=== PATIENT | male | born 1990 | race Caucasian/White ===

== ENCOUNTER 2017-08-15 18:41 | Emergency (ER) | payer MEDICAID ==
[~2017-08-15] VITALS: Ht 188 cm; Wt 134.7 kg
[2017-08-15 18:54] VITALS: BP 140/89
== END 2017-08-15 20:57 | disposition home or self-care (01) ==
LOC: ER 18:44
DX: R05 Cough (principal); Z86.19 Personal history of other infectious and parasitic diseases
CPT/HCPCS: 71046; A4606; Z7610

== ENCOUNTER 2018-03-07 20:12 | Emergency (ER) | payer MEDICAID ==
[~2018-03-07] VITALS: Ht 188 cm; Wt 124.3 kg
[2018-03-07 21:25] LABS: BASOPHILS # (AUTO) 0.1 /CMM (0.0-0.2); EOSINOPHILS % (AUTO) 2.5 % (0.0-6.0); HEMATOCRIT 45 % (39-51); HEMOGLOBIN 15.3 g/dL (13.5-17.5); LYMPHOCYTES # (AUTO) 2.1 /CMM (0.8-4.8); LYMPHOCYTES % (AUTO) 25.6 % (20.0-44.0); MEAN CORPUSCULAR HGB CONC 34 g/dl (31.0-36.0); MEAN CORPUSCULAR VOLUME 94 fL (80-96); MONOCYTES # (AUTO) 0.7 /CMM (0.1-1.30); NEUTROPHILS # (AUTO) 5.1 /CMM (1.8-8.9); NEUTROPHILS % (AUTO) 62.9 % (43.0-81.0); PLATELET COUNT (AUTO) 214 /CMM (150-450); RDW COEFFICIENT OF VARIATION 12.3 (11.5-15.0); RED BLOOD CELL COUNT(AUTO) 4.78 MIL/uL (4.5-6.0); WHITE BLOOD COUNT (AUTO) 8.2 K/uL (4.3-11.0)
[2018-03-07] MEDS ORDERED: ACETAMINOPHEN ES 500 MG TABLET PO ONE (21:30)
[2018-03-07] MEDS ORDERED: LIDOCAINE VISCOUS 2% UD 15 ML UDC MM ONE (21:30)
[2018-03-07] MEDS ORDERED: MAG HYDROX/AL HYDROX/SIMETH 30 ML UDC PO ONE (21:30)
[2018-03-07 21:36] LABS: INR 0.9 (0.85-1.15)
[2018-03-07 21:39] LABS: ALANINE AMINOTRANSFERASE 165 U/L (12-78); ALBUMIN 3.7 g/dL (3.4-5.0); ALKALINE PHOSPHATASE 103 U/L (46-116); ASPARTATE AMINOTRANSFERASE 70 U/L (15-37); BILIRUBIN,DIRECT 0.1 mg/dL (0.0-0.2); BILIRUBIN,TOTAL 0.5 mg/dL (0.2-1.0); CALCIUM, SERUM 8.6 mg/dL (8.5-10.1); CARBON DIOXIDE 32 mmol/L (21-32); CHLORIDE 105 mmol/L (98-107); GLUCOSE 91 mg/dL (74-106); POTASSIUM 3.4 mmol/L (3.5-5.1); SODIUM SERUM 141 mmol/L (136-145); TOTAL PROTEIN, SERUM 7.4 g/dL (6.4-8.2); UREA NITROGEN, BLOOD 12 mg/dL (7-18)
[2018-03-07 21:41] LABS: TROPONIN I < 0.017 ng/mL (0.00-0.056)
[2018-03-07] MEDS ORDERED: MAG HYDROX/AL HYDROX/SIMETH 30 ML UDC ONE (21:43)
[2018-03-07] MEDS ORDERED: ACETAMINOPHEN ES 500 MG TABLET ONE (21:43)
[2018-03-07] MEDS ORDERED: LIDOCAINE VISCOUS 2% UD 15 ML UDC ONE (21:43)
--- NOTE | 2018-03-07 21:43 | NUR ---
PT BIB SELF WITH MOTHER AT BEDSIDE, COMPLAINING OF CHEST PAIN 12/19 DOES NOT RADIATE SINCE 1000 03/07 THIS AM. VITAL SIGNS STABLE, RR EVEN AND UNLABORED WILL CONTINUE TO MONITOR
[2018-03-07 22:04] LABS: D-DIMER 0.32 mg/L(FEU (0.17-0.50)
[2018-03-07 22:25] VITALS: BP 142/79
== END 2018-03-07 22:25 | disposition home or self-care (01) ==
LOC: ER 20:13
DX: R07.89 Other chest pain (principal); R74.0 Nonspecific elevation of levels of transaminase and lactic acid dehydrogenase [LDH]; F12.90 Cannabis use, unspecified, uncomplicated; Z86.19 Personal history of other infectious and parasitic diseases
CPT/HCPCS: 36415; 71045-TC; 80048-TC; 80076-TC; 84484-TC; 85025-TC; 85378-TC; 85730-TC; A4606; Z7610

== ENCOUNTER 2018-04-24 05:05 | Emergency (ER) | payer MEDICAID ==
[~2018-04-24] VITALS: Ht 188 cm; Wt 106.6 kg
[2018-04-24] MEDS ORDERED: MORPHINE SULFATE INJ 4 MG/ML DISP.SYRIN ONE (05:38)
[2018-04-24] MEDS ORDERED: ONDANSETRON HCL/PF 4 MG/2 ML VIAL ONE (05:38)
[2018-04-24] MEDS ORDERED: PANTOPRAZOLE 40 MG VIAL ONE (05:38)
[2018-04-24 05:55] LABS: BASOPHILS % (AUTO) 0.4 % (0.0-2.0); HEMATOCRIT 47 % (39-51); HEMOGLOBIN 16.3 g/dL (13.5-17.5); LYMPHOCYTES # (AUTO) 1.2 /CMM (0.8-4.8); LYMPHOCYTES % (AUTO) 17.9 % (20.0-44.0); MEAN CORPUSCULAR HGB CONC 35 g/dl (31.0-36.0); MEAN CORPUSCULAR VOLUME 95 fL (80-96); MONOCYTES # (AUTO) 0.6 /CMM (0.1-1.30); MONOCYTES % (AUTO) 9.2 % (2.0-12.0); NEUTROPHILS # (AUTO) 4.6 /CMM (1.8-8.9); NEUTROPHILS % (AUTO) 70.5 % (43.0-81.0); PLATELET COUNT (AUTO) 180 /CMM (150-450); RED BLOOD CELL COUNT(AUTO) 4.98 MIL/uL (4.5-6.0); WHITE BLOOD COUNT (AUTO) 6.5 K/uL (4.3-11.0)
[2018-04-24] MEDS ORDERED: ONDANSETRON HCL/PF 4 MG/2 ML VIAL IVP ONE (06:00)
[2018-04-24] MEDS ORDERED: IV NS 0.9% 1,000 ML BAG IV ONE (06:00)
[2018-04-24] MEDS ORDERED: PANTOPRAZOLE 40 MG VIAL IV ONE (06:00)
[2018-04-24] MEDS ORDERED: MORPHINE SULFATE INJ 2 MG/ML DISP.SYRIN IV ONE (06:00)
[2018-04-24 06:04] LABS: CALCIUM, SERUM 8.5 mg/dL (8.5-10.1); POTASSIUM 3.1 mmol/L (3.5-5.1)
[2018-04-24 06:10] LABS: ALBUMIN 3.7 g/dL (3.4-5.0); BILIRUBIN,DIRECT 0.1 mg/dL (0.0-0.2); BILIRUBIN,TOTAL 0.5 mg/dL (0.2-1.0); TOTAL PROTEIN, SERUM 7.8 g/dL (6.4-8.2)
[2018-04-24] MEDS ORDERED: POTASSIUM CHLORIDE 20 MEQ TAB.PRT.SR PO ONE ×2 (06:30→06:38)
--- NOTE | 2018-04-24 07:29 | NUR ---
RECEIVED REPORT FROM OUTGOING NURSE PATIENT IN BED, STABLE AT THIS TIME. WILL CONTINUE TO MONITOR ACCORDINGLY.
--- NOTE | 2018-04-24 07:44 | NUR ---
REPORT GIVEN TO ANGELICA DENT FOR NAT.
[2018-04-24 08:04] LABS: BASOPHILS % (AUTO) 0.3 % (0.0-2.0); EOSINOPHILS % (AUTO) 1.4 % (0.0-6.0); HEMATOCRIT 47 % (39-51); LYMPHOCYTES # (AUTO) 1.5 /CMM (0.8-4.8); LYMPHOCYTES % (AUTO) 20.2 % (20.0-44.0); MEAN CORPUSCULAR HGB CONC 34 g/dl (31.0-36.0); MEAN CORPUSCULAR VOLUME 94 fL (80-96); MONOCYTES # (AUTO) 0.6 /CMM (0.1-1.30); MONOCYTES % (AUTO) 8.2 % (2.0-12.0); NEUTROPHILS # (AUTO) 5.1 /CMM (1.8-8.9); NEUTROPHILS % (AUTO) 69.9 % (43.0-81.0); PLATELET COUNT (AUTO) 184 /CMM (150-450); RED BLOOD CELL COUNT(AUTO) 4.93 MIL/uL (4.5-6.0); WHITE BLOOD COUNT (AUTO) 7.3 K/uL (4.3-11.0)
[2018-04-24 08:57] VITALS: BP 135/70
== END 2018-04-24 08:58 | disposition home or self-care (01) ==
LOC: ER 05:05
DX: K29.70 Gastritis, unspecified, without bleeding (principal); F17.200 Nicotine dependence, unspecified, uncomplicated; Z86.19 Personal history of other infectious and parasitic diseases
CPT/HCPCS: 36415; 80048-TC; 80076-TC; 83690-TC; 85025-TC; 85730-TC; A4606; C9113; J2270; J2405; J7030; Z7610

== ENCOUNTER 2018-07-23 14:20 | Emergency (ER) | payer MEDICAID ==
[~2018-07-23] VITALS: Ht 188 cm; Wt 136.1 kg
[2018-07-23 14:25] VITALS: BP 150/80
[2018-07-23] MEDS ORDERED: GUAIFENESIN/D-METHORPHAN HB 5 ML UDC ONE (14:42)
[2018-07-23] MEDS ORDERED: IBUPROFEN 600 MG TABLET PO ONE ×2 (14:42→15:00)
[2018-07-23] MEDS ORDERED: GUAIFENESIN/D-METHORPHAN HB 5 ML UDC PO ONE (15:00)
== END 2018-07-23 14:49 | disposition home or self-care (01) ==
LOC: ER 14:23
DX: J40 Bronchitis, not specified as acute or chronic (principal); F17.200 Nicotine dependence, unspecified, uncomplicated; Z86.19 Personal history of other infectious and parasitic diseases

== ENCOUNTER 2019-03-08 21:37 | Emergency (ER) | payer MEDICAID ==
[~2019-03-08] VITALS: Ht 188 cm; Wt 109.3 kg
--- NOTE | 2019-03-08 22:05 | NUR ---
BIBSELF AMBULATORY TO ER [facility] 12. C/O EYE PAIN S/P FLICKED CIGARETTE IN L EYE. UNABLE TO OPEN BOTH EYES" AOX4. VSS. RR EVEN UNLABORED. NO SOB NOTED. NO NVD AT THIS TIME. PT WAITING FOR MD SAHU. UNABLE TO DO VISUAL ACUITY AT THIS TIME.
[2019-03-08] MEDS ORDERED: ONDANSETRON HCL 4 MG/5 ML SOLUTION PO ONE (22:30)
[2019-03-08] MEDS ORDERED: TETRACAINE HCL 0.5% OPHTALMIC 15 ML BOTTLE OP ONE (22:30)
[2019-03-08] MEDS ORDERED: FLUORESCEIN SODIUM OPHTH 1 EA STRIP OP ONE (22:30)
[2019-03-08] MEDS ORDERED: HYDROCODONE/APAP 5/325MG 1 EACH TABLET PO ONE (22:30)
[2019-03-08] MEDS ORDERED: ONDANSETRON HCL 4 MG/5 ML SOLUTION ONE (22:40)
[2019-03-08] MEDS ORDERED: HYDROCODONE/APAP 5/325MG 1 EACH TABLET ONE (22:41)
[2019-03-08] MEDS ORDERED: FLUORESCEIN SODIUM OPHTH 1 EA STRIP ONE (23:04)
[2019-03-08 23:50] VITALS: BP 138/77
== END 2019-03-08 23:52 | disposition home or self-care (01) ==
LOC: ER 21:38
DX: S05.02XA Injury of conjunctiva and corneal abrasion without foreign body, left eye, initial encounter (principal); F17.200 Nicotine dependence, unspecified, uncomplicated; Z86.19 Personal history of other infectious and parasitic diseases; W22.8XXA Striking against or struck by other objects, initial encounter; Y93.89 Activity, other specified; Y92.89 Other specified places as the place of occurrence of the external cause; Y99.8 Other external cause status
CPT/HCPCS: 99283; J7030; Q0162

== ENCOUNTER 2019-03-13 21:18 | Emergency (ER) | payer MEDICAID ==
[~2019-03-13] VITALS: Ht 190.5 cm; Wt 118.4 kg
[2019-03-13 21:22] VITALS: BP 130/100
[2019-03-13] MEDS ORDERED: TDAP [DIPH/PERTUSSIS/TET] 0.5 ML VIAL IM ONE ×2 (21:36→22:00)
[2019-03-13] MEDS ORDERED: IBUPROFEN 600 MG TABLET PO ONE (21:40)
== END 2019-03-13 21:42 | disposition home or self-care (01) ==
LOC: ER 21:18
DX: S91.331A Puncture wound without foreign body, right foot, initial encounter (principal); F17.200 Nicotine dependence, unspecified, uncomplicated; Z86.19 Personal history of other infectious and parasitic diseases; W22.8XXA Striking against or struck by other objects, initial encounter; Y93.89 Activity, other specified; Y92.89 Other specified places as the place of occurrence of the external cause; Y99.8 Other external cause status
CPT/HCPCS: 90715

== ENCOUNTER 2019-11-01 14:01 | Emergency (ER) | payer MEDICAID ==
[~2019-11-01] VITALS: Ht 190.5 cm; Wt 115.7 kg
[2019-11-01 14:19] VITALS: BP 137/76
[2019-11-01] MEDS ORDERED: TDAP [DIPH/PERTUSSIS/TET] 0.5 ML VIAL IM ONE ×2 (14:30→14:39)
== END 2019-11-01 15:50 | disposition home or self-care (01) ==
LOC: ER 14:05
DX: S05.11XA Contusion of eyeball and orbital tissues, right eye, initial encounter (principal); S91.331A Puncture wound without foreign body, right foot, initial encounter; I10 Essential (primary) hypertension; F17.200 Nicotine dependence, unspecified, uncomplicated; W22.8XXA Striking against or struck by other objects, initial encounter; Y93.89 Activity, other specified; Y92.89 Other specified places as the place of occurrence of the external cause; Y99.8 Other external cause status
CPT/HCPCS: 73620-TC; 90715

== ENCOUNTER 2019-12-18 19:16 | Emergency (ER) | payer MEDICAID ==
[~2019-12-18] VITALS: Ht 177.8 cm; Wt 81.6 kg
[2019-12-18 19:27] VITALS: BP 108/63
--- NOTE | 2019-12-18 19:30 | NUR ---
PT AAOX4. AMBULATORY WITH STEADY GAIT. 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 NO ACUTE DISTRESS NOTED. VSS. AWAITING PA FOR EVAL AND ORDERS. WILL CONTINUE TO MONITOR.
--- NOTE | 2019-12-18 19:40 | NUR ---
XRAY AT BEDSIDE
[2019-12-18] MEDS ORDERED: LIDOCAINE 1%-EPI 1:100,000 20 ML VIAL ONE (19:43)
--- NOTE | 2019-12-18 19:52 | NUR ---
PA AT BEDSIDE
--- NOTE | 2019-12-18 20:14 | NUR ---
Patient discharged to home in stable condition. Written and verbal after care instructions given. Patient verbalizes understanding of instruction. Pt ambulated with steady gait.
== END 2019-12-18 20:16 | disposition home or self-care (01) ==
LOC: ER 19:20
DX: M79.5 Residual foreign body in soft tissue (principal); F19.10 Other psychoactive substance abuse, uncomplicated; I10 Essential (primary) hypertension; R23.4 Changes in skin texture; Z86.19 Personal history of other infectious and parasitic diseases
CPT/HCPCS: 73080; 99284; J3490

== ENCOUNTER 2020-05-21 14:22 | Emergency (ER) | payer MEDICAID ==
--- NOTE | 2020-05-21 14:45 | NUR ---
CALLED TO TRIAGE, NO ANSWER
--- NOTE | 2020-05-21 15:04 | NUR ---
CALLED TO TRIAGE,NO ANSWER
== END 2020-05-21 15:08 | disposition left against medical advice (07) ==
LOC: ER 14:23
DX: Z53.21 Procedure and treatment not carried out due to patient leaving prior to being seen by health care provider (principal)

== ENCOUNTER 2020-05-30 16:18 | Emergency (ER) | payer MEDICAID ==
[~2020-05-30] VITALS: Ht 190.5 cm; Wt 117.9 kg
[2020-05-30 16:31] VITALS: BP 138/85
--- NOTE | 2020-05-30 16:41 | NUR ---
Patient discharged to home in stable condition. Written and verbal after care instructions given. Patient verbalizes understanding of instruction.
== END 2020-05-30 16:41 | disposition home or self-care (01) ==
LOC: ER 16:31
DX: L03.113 Cellulitis of right upper limb (principal); I10 Essential (primary) hypertension

== ENCOUNTER 2020-06-27 15:16 | Emergency (ER) | payer MEDICAID ==
[~2020-06-27] VITALS: Ht 182.9 cm; Wt 90.7 kg
--- NOTE | 2020-06-27 16:10 | NUR ---
BIB Family "acting bizarre/talikng to self /gets angry at times been going on for 3-4 mos but now worse"
[2020-06-27 16:45] LABS: BASOPHILS # (AUTO) 0.1 /CMM (0.0-0.2); BASOPHILS % (AUTO) 0.7 % (0.0-2.0); EOSINOPHILS % (AUTO) 2.2 % (0.0-6.0); HEMATOCRIT 51 % (39-51); HEMOGLOBIN 17.4 g/dL (13.5-17.5); LYMPHOCYTES % (AUTO) 18.5 % (20.0-44.0); MEAN CORPUSCULAR HGB CONC 34 g/dl (31.0-36.0); MEAN CORPUSCULAR VOLUME 95 fL (80-96); MONOCYTES % (AUTO) 9.4 % (2.0-12.0); NEUTROPHILS # (AUTO) 7.4 /CMM (1.8-8.9); NEUTROPHILS % (AUTO) 69.2 % (43.0-81.0); PLATELET COUNT (AUTO) 243 /CMM (150-450); RED BLOOD CELL COUNT(AUTO) 5.37 MIL/uL (4.5-6.0); WHITE BLOOD COUNT (AUTO) 10.7 K/uL (4.3-11.0)
[2020-06-27 17:12] LABS: CALCIUM, SERUM 9.3 mg/dL (8.5-10.1); CARBON DIOXIDE 29 mmol/L (21-32); CHLORIDE 103 mmol/L (98-107); CREATININE 1.1 mg/dL (0.6-1.3); GLUCOSE 86 mg/dL (74-106); SODIUM SERUM 142 mmol/L (136-145); UREA NITROGEN, BLOOD 17 mg/dL (7-18)
[2020-06-27 17:59] LABS: BILIRUBIN,URINE NEGATIVE (NEGATIVE); COLOR,URINE YELLOW (YELLOW); LEUKOCYTE ESTERASE ,URINE NEGATIVE (NEGATIVE); NITRITE, URINE NEGATIVE (NEGATIVE); PH,URINE 5.5 (5.0-8.0); PROTEIN,URINE TRACE mg/dl (NEGATIVE); UGLUCOSE NEGATIVE (NEGATIVE); UROBILINOGEN,URINE 0.2 EU/dL (0.2)
--- NOTE | 2020-06-27 18:00 | NUR ---
Dinner Tray given ate 100%
[2020-06-27 18:06] LABS: BACTERIA,URINE Few /HPF (None Seen); RBC,URINE 0-2 /HPF (0-2); SQUAMOUS EPITHELIAL CELL,UR Few /HPF (None Seen); WBC,URINE 0-2 /HPF (0-3)
[2020-06-27 18:18] LABS: ALANINE AMINOTRANSFERASE 36 U/L (12-78); ALBUMIN 4.3 g/dL (3.4-5.0); ALKALINE PHOSPHATASE 99 U/L (46-116); ASPARTATE AMINOTRANSFERASE 25 U/L (15-37); BILIRUBIN,DIRECT 0.2 mg/dL (0.0-0.2); BILIRUBIN,TOTAL 0.6 mg/dL (0.2-1.0); TOTAL PROTEIN, SERUM 8.3 g/dL (6.4-8.2)
[2020-06-27 18:19] LABS: ACETAMINOPHEN < 0 ug/ml (10-30); ALCOHOL, BLOOD < 3 mg/dL (0-0)
--- NOTE | 2020-06-27 18:47 | NUR ---
Pt starting to pace, is still able to cooperate and easily directable. Both pt and family updated with PC
--- NOTE | 2020-06-27 18:49 | NUR ---
toxicology still pending.
--- NOTE | 2020-06-27 18:49 | NUR ---
PATIENT ASSISTED TO ER BED 11.5, CALLED SECURITY FOR WANDING.
--- NOTE | 2020-06-27 20:12 | NUR ---
CLINICAL AND FAC[facility]HEET [facility]ED TO [facility] FOR PSYCH VOLUNTARY ADMISSION.
--- NOTE | 2020-06-27 20:41 | NUR ---
PT PROVIDED WITH WATER AND FOOD. VSS. RESTING COMFORTABLY. AWAITING FOR [facility] FOR ACCEPTANCE. FAMILY AWARE PER PT'S CONSENT.
--- NOTE | 2020-06-27 21:05 | NUR ---
TRANSFER INFORMATION: PT WILL BE TRANSFERRED TO [place] ACCEPTING MD: DR. SMITH NUMBER FOR REPORT: [phone]
--- NOTE | 2020-06-27 21:14 | NUR ---
CALLED [facility] FOR TRANSPORTATION. WILL CALL BACK WITH ETA. RESERVATION #[id number]
--- NOTE | 2020-06-27 21:35 | NUR ---
transport ETA 45-50min
[2020-06-27 21:41] VITALS: BP 144/77
--- NOTE | 2020-06-27 21:59 | NUR ---
REPORT GIVEN TO EARL DOMINGUEZ FOR NAT
--- NOTE | 2020-06-27 22:56 | NUR ---
REPORT GIVEN TO EMT, PT TRANSFERED TO [place]
== END 2020-06-27 22:56 ==
LOC: ER 15:31
DX: F29 Unspecified psychosis not due to a substance or known physiological condition (principal); F19.10 Other psychoactive substance abuse, uncomplicated; F15.10 Other stimulant abuse, uncomplicated; F12.10 Cannabis abuse, uncomplicated; I10 Essential (primary) hypertension; Z86.19 Personal history of other infectious and parasitic diseases; F31.9 Bipolar disorder, unspecified; Z20.822 Contact with and (suspected) exposure to COVID-19
CPT/HCPCS: 36415; 80048; 80076; 80299; 80307; 80320; 81001; 85025; 87426; 99285; C9803; G0480